=== PATIENT | female | born 1995 | race Caucasian/White ===

== ENCOUNTER 2024-01-03 23:55 | Observation (INO) | payer MEDICAID, OTHER ==
[~2024-01-03] VITALS: Ht 149.9 cm; Wt 76.7 kg
[2024-01-04] MEDS ORDERED: PREN-543 PO (01:05)
[2024-01-04 01:06] VITALS: BP 101/59; PULSE 92; RESP 18; TEMP 98.7
[2024-01-04] MEDS: LACTATED RINGERS 1,000 ML IV SCH (01:38)
[2024-01-04] MEDS: TERBUTALINE 1 MG/ML VIAL SUBQ SCH (02:24)
== END 2024-01-04 06:40 | disposition home or self-care (01) ==
LOC: MLD 23:55
PROVIDERS: ADMIT Obstetrics & Gynecology; ATTEND Obstetrics & Gynecology
DX: O62.9 Abnormality of forces of labor, unspecified (principal); Z3A.40 40 weeks gestation of pregnancy
CPT/HCPCS: 96360; 96361; 96372; G0378; J3105; J7120

== ENCOUNTER 2024-01-05 08:55 | Inpatient (IN) | payer MEDICAID, OTHER ==
[~2024-01-05] VITALS: Ht 149 cm; Wt 76.7 kg
[~2024-01-05 08:55] MED LIST: PREN-543 PO
[2024-01-05] MEDS ORDERED: LACTATED RINGERS 500 ML IV SCH (09:20)
[2024-01-05] MEDS: LACTATED RINGERS 1,000 ML IV SCH (09:38)
[2024-01-05 09:47] LABS: BASOPHILS % (AUTO) 0.4 % (0.0-2.0); EOSINOPHILS # (AUTO) 0.1 K/uL (0-0.4); EOSINOPHILS % (AUTO) 0.9 % (0.0-4.0); HEMATOCRIT 29.8 % (36-48); LYMPHOCYTES % (AUTO) 13.6 % (20.5-51.1); MEAN CORPUSCULAR HEMOGLOBIN 28 pg (27-31); MEAN CORPUSCULAR HGB CONC 33 g/dL (33-37); MEAN CORPUSCULAR VOLUME 82.4 fL (80-94); MONOCYTES # (AUTO) 0.4 K/uL (0.8-1.0); MONOCYTES % (AUTO) 5.9 % (1.7-9.3); NEUTROPHILS # (AUTO) 5.9 K/uL (1.8-7.7); NEUTROPHILS % (AUTO) 79.2 % (42.2-75.2); PLATELET COUNT (AUTO) 227 K/uL (140-450); RED BLOOD CELL COUNT(AUTO) 3.61 MIL/uL (4.20-5.40); RED CELL DISTRIBUTION WIDTH 15.6 % (11.6-13.7); WHITE BLOOD COUNT (AUTO) 7.4 K/uL (4.8-10.8)
[2024-01-05 09:53] LABS: APPEARANCE,URINE CLEAR (CLEAR); BILIRUBIN,URINE NEGATIVE (NEGATIVE); BLOOD, URINE NEGATIVE (NEGATIVE); COLOR,URINE YELLOW (YELLOW); LEUKOCYTE ESTERASE ,URINE NEGATIVE (NEGATIVE); NITRITE, URINE NEGATIVE (NEGATIVE); PH,URINE 6.5 (5.0-9.0); PROTEIN,URINE NEGATIVE (NEGATIVE); UGLUCOSE NEGATIVE (NEGATIVE)
[2024-01-05 10:08] LABS: ALBUMIN 2.3 g/dL (3.4-5.0); ANION GAP 15.5 (8-16); CALCIUM 8.4 mg/dL (8.5-10.1); CARBON DIOXIDE 20.1 mmol/L (21-32); CREATININE 0.4 mg/dL (0.6-1.3); POTASSIUM 3.6 mmol/L (3.5-5.1); TOTAL BILIRUBIN 0.2 mg/dL (0.0-1.0); TOTAL PROTEIN, SERUM 6.1 g/dL (6.4-8.2)
[2024-01-05 10:17] LABS: INR 0.95 (0.8-1.2); PARTIAL THROMBOPLASTIN TIME 24.8 secs (22-35.6)
[2024-01-05] MEDS ORDERED: MORPHINE PRES FREE 10 MG/10 ML AMP IV ONE (12:38)
[2024-01-05] MEDS ORDERED: fentaNYL citrate 0.05 MG/ML VIAL ONE (12:39)
[2024-01-05] MEDS ORDERED: OXYTOCIN/0.9 % SODIUM CHLORIDE 500 ML IV ONE (12:47)
[2024-01-05] MEDS: ceFAZolin 2,000 MG VIAL ONE (13:35)
[2024-01-05] MEDS ORDERED: OXYTOCIN 20 UNITS in LACTATED RINGERS 1,000 ML IV SCH (13:40)
[2024-01-05] MEDS ORDERED: TEMAZEPAM 15 MG CAP PO PRN (13:40)
[2024-01-05] MEDS ORDERED: METHYLERGONOVINE 0.2 MG/ML AMP IM PRN (13:40)
[2024-01-05] MEDS ORDERED: OXYTOCIN/0.9 % SODIUM CHLORIDE 500 ML IV SCH (13:50)
[2024-01-05] MEDS ORDERED: ONDANSETRON 4 MG/2 ML VIAL IVP PRN ×2 (14:50→19:45)
[2024-01-05] MEDS: OXYTOCIN/0.9 % SODIUM CHLORIDE 500 ML IV SCH (15:21)
[2024-01-05] MEDS: KETOROLAC 30 MG/ML VIAL IVP PRN (18:08)
[2024-01-05] MEDS ORDERED: diphenhydrAMINE 50 MG/ML VIAL IVP PRN (19:45)
[2024-01-05] MEDS ORDERED: KETOROLAC 30 MG/ML VIAL IVP PRN (19:45)
[2024-01-05] MEDS: DOCUSATE SOD/SENNA 50/8.6 MG 1 TAB PO SCH (21:00)
[2024-01-06 08:26] LABS: BASOPHILS % (AUTO) 0.2 % (0.0-2.0); EOSINOPHILS % (AUTO) 0.4 % (0.0-4.0); HEMATOCRIT 24.9 % (36-48); HEMOGLOBIN 8.2 g/dL (12.0-16.0); LYMPHOCYTES % (AUTO) 8.6 % (20.5-51.1); MEAN CORPUSCULAR HEMOGLOBIN 27 pg (27-31); MEAN CORPUSCULAR HGB CONC 33 g/dL (33-37); MEAN CORPUSCULAR VOLUME 81.9 fL (80-94); MONOCYTES # (AUTO) 0.6 K/uL (0.8-1.0); MONOCYTES % (AUTO) 4.8 % (1.7-9.3); PLATELET COUNT (AUTO) 207 K/uL (140-450); RED BLOOD CELL COUNT(AUTO) 3.05 MIL/uL (4.20-5.40); RED CELL DISTRIBUTION WIDTH 15.1 % (11.6-13.7); WHITE BLOOD COUNT (AUTO) 11.6 K/uL (4.8-10.8)
[2024-01-06 09:07] LABS: HEPATITIS B SURFACE ANTIGEN Negative (Negative); RUBELLA AB IGG 2.15 index (Immune >0.99)
[2024-01-06] MEDS: IBUPROFEN 800 MG TAB PO PRN (12:28)
[2024-01-06] MEDS: oxyCODONE/APAP 5/325 MG 1 TAB TAB PO PRN (21:50)
[2024-01-07] MEDS: oxyCODONE/APAP 5/325 MG 1 TAB TAB PO PRN (06:01)
[2024-01-07] MEDS: SIMETHICONE 80 MG TAB.CHEW PO PRN (08:37)
== END 2024-01-07 16:30 | disposition home or self-care (01) | DRG 540 ==
LOC: MLD 08:55 → MFCC 15:29
PROVIDERS: ADMIT Obstetrics & Gynecology; ATTEND Obstetrics & Gynecology
PROC: 10D00Z1 Extraction of Products of Conception, Low, Open Approach (ICD-10-PCS; principal; 2024-01-05 13:00)
DX: O34.211 Maternal care for low transverse scar from previous cesarean delivery (principal); Z37.0 Single live birth; Z3A.39 39 weeks gestation of pregnancy
CPT/HCPCS: 36415; 51702; 80053; 81003; 85025; 85610; 85730; 86592; 86762; 86886; 86900; 86901; 87081; 87340; J1885; J2270; J2590; J3010; J7120

== ENCOUNTER 2024-01-22 17:39 | Emergency (ER) | payer MEDICAID ==
[~2024-01-22] VITALS: Ht 149.9 cm; Wt 67.8 kg
[2024-01-22 17:51] VITALS: BP_SYST 113; BP_SYST 97; BP_DIAS 45; BP_DIAS 53; PULSE 73; RESP 18; TEMP 98.7; O2SAT 99
[2024-01-22] MEDS: NACL 0.9% 1,000 ML IV ONE (18:29)
[2024-01-22 18:35] LABS: BASOPHILS % (AUTO) 0.3 % (0.0-2.0); EOSINOPHILS # (AUTO) 0.2 K/uL (0-0.4); EOSINOPHILS % (AUTO) 2.4 % (0.0-4.0); HEMATOCRIT 33.5 % (36-48); HEMOGLOBIN 10.7 g/dL (12.0-16.0); LYMPHOCYTES # (AUTO) 0.7 K/uL (2.5-16.5); LYMPHOCYTES % (AUTO) 8.1 % (20.5-51.1); MEAN CORPUSCULAR HEMOGLOBIN 26 pg (27-31); MEAN CORPUSCULAR HGB CONC 32 g/dL (33-37); MEAN CORPUSCULAR VOLUME 80.3 fL (80-94); MONOCYTES # (AUTO) 0.3 K/uL (0.8-1.0); MONOCYTES % (AUTO) 3.3 % (1.7-9.3); NEUTROPHILS # (AUTO) 7.8 K/uL (1.8-7.7); NEUTROPHILS % (AUTO) 85.9 % (42.2-75.2); PLATELET COUNT (AUTO) 388 K/uL (140-450); RED BLOOD CELL COUNT(AUTO) 4.17 MIL/uL (4.20-5.40); RED CELL DISTRIBUTION WIDTH 15.8 % (11.6-13.7)
[2024-01-22] MEDS: KETOROLAC 30 MG/ML VIAL IVP ONE (18:42)
[2024-01-22 18:43] LABS: ANION GAP 15.9 (8-16); CALCIUM 8.7 mg/dL (8.5-10.1); CARBON DIOXIDE 22.8 mmol/L (21-32); CREATININE 0.6 mg/dL (0.6-1.3); POTASSIUM 3.7 mmol/L (3.5-5.1)
[2024-01-22] MEDS: ONDANSETRON 4 MG/2 ML VIAL IVP ONE (18:44)
[2024-01-22 20:20] LABS: APPEARANCE,URINE CLEAR (CLEAR); BILIRUBIN,URINE NEGATIVE (NEGATIVE); BLOOD, URINE NEGATIVE (NEGATIVE); COLOR,URINE YELLOW (YELLOW); LEUKOCYTE ESTERASE ,URINE NEGATIVE (NEGATIVE); NITRITE, URINE NEGATIVE (NEGATIVE); PROTEIN,URINE NEGATIVE (NEGATIVE); UGLUCOSE NEGATIVE (NEGATIVE); UROBILINOGEN,URINE 0.2 EU/dL (0.2 - 1)
== END 2024-01-22 20:34 | disposition home or self-care (01) ==
LOC: MED 17:39
DX: O90.89 Other complications of the puerperium, not elsewhere classified (principal); R51.9 Headache, unspecified; Z48.01 Encounter for change or removal of surgical wound dressing; Z98.890 Other specified postprocedural states; Z79.899 Other long term (current) drug therapy
CPT/HCPCS: 36415; 80048; 81003; 81025; 85025; 96361; 96374; 96375; 99284; J1885; J2405; J7030